=== PATIENT | female | born 1940 | race Caucasian/White ===

== ENCOUNTER 2016-12-23 05:51 | Emergency (ER) | payer MEDICARE ==
--- NOTE | ~2016-12-23 | ER ---
PATIENT'S NAME: EDITH ARRIAGA [facility] AGE: 75 Y [address] ROOM: [place] [address] LOCATION: [facility] ADMIT DATE: 12/23/2016 ER/Outpatient Report DISCHARGE DATE: 12/23/2016 FAMILY PHYSICIAN: Tonya Bauman ATTENDING PHYSICIAN: Benny Pulliam CHIEF COMPLAINT: Diarrhea. HISTORY OF PRESENT ILLNESS: The patient arrives by EMS for evaluation of her diarrhea. The patient was at home this morning around 5 o'clock when she felt the urge to have a bowel movement. She did have loss of stool [facility] This was concerning to her and that is why she pushed her [employer] button. She recently was in [place] and started having diarrhea on Friday on their way back. She was accompanied by a friend at that time. Her friend notes that there are no significant changes about the patient otherwise except for the fact that she has been more forgetful over the last weeks to months. No significant changes in the last 24 hours. The patient denies any other issues and has not seen any blood in her stool that she knows of. PAST MEDICAL HISTORY: Documented on the record and reviewed by me. SOCIAL HISTORY: Documented on the record and reviewed by me. MEDICATIONS: Documented on the record and reviewed by me. ALLERGIES: DOCUMENTED ON THE RECORD REVIEWED BY ME. REVIEW OF SYSTEMS: All systems reviewed and negative except as noted in the HPI. PHYSICAL EXAMINATION: VITAL SIGNS: Blood pressure 169/73, pulse 85, respiratory rate 17, temp 97.6, SpO2 is 100% on room air. Pain 0/10. GENERAL: Age-appropriate female, in no obvious pain or distress. Neuro: The patient is awake and alert. GCS 15. No focal deficits or asymmetry appreciated on her exam. Slight tremor in the hands is noted. No significant asymmetry appreciated. The patient has some word-finding difficulties at time. She does have some recall issues as well. No dysarthria appreciated. No focal deficits. No pronator drift or focal PATIENT'S NAME: EDITH ARRIAGA [facility] AGE: 75 Y [address] ROOM: [place], [place] [address] LOCATION: [facility] ADMIT DATE: 12/23/2016 ER/Outpatient Report DISCHARGE DATE: 12/23/2016 FAMILY PHYSICIAN: Tonya Bauman ATTENDING PHYSICIAN: Benny Pulliam weakness. HEENT: Normocephalic, atraumatic. The eyes are PERRL. The oropharynx is clear, slightly dry lips, otherwise moist, no erythema or exudates. NECK: Supple. Trachea is midline. CHEST: Heart is regular rate and rhythm with no murmurs. LUNGS: Clear to auscultation bilateral with no rhonchi, wheezes, or rales. ABDOMEN: Soft, nontender, and nondistended. No masses, no rebound, no guarding. BACK: Nontender to palpation throughout. No CVA tenderness. RECTAL: Notable for some stool externally. Good strong rectal tone. No gross blood. No masses appreciated. EXTREMITIES: Warm and well perfused with no appreciated peripheral edema. No deformities. SKIN: Intact without rashes or significant breakdown. LABS AND X-RAYS: Head CT without any abnormality per Radiology. Sodium 140, potassium 3.5, chloride 106, CO2 is 26, BUN is 13, creatinine 0.8. GFR greater than 30. LFT is within limits. TSH is 2.06. WBC is 8.6, hemoglobin 12.8, and platelets of 178. INR is 1.0. Hemoccult negative. IMPRESSION: Diarrhea, new onset. EMERGENCY DEPARTMENT COURSE: The patient was evaluated as above. No significant metabolic derangements or hypovolemia appreciated on labs or exam. Head CT was obtained before I obtained prior collateral information with no acute changes in patient's mental status and forgetfulness. No significant findings at that time. I did discuss the patient with Dr. Fernandez, the patient's primary care physician. I am concerned the patient may have progressing dementia, either Alzheimer's or Parkinson type. I do not think that her diarrhea requires intervention at this point in time. She was unable to provide a stool sample. I did send orders for an outpatient stool analysis to be completed. She will return that sample when available. [id number] remedies as needed and encouraged hydration for volume status. Follow up with primary care physician, Dr. Fernandez, anytime this week, except for . This was all discussed with the patient. She expressed her understanding and agreed. Her friend also agreed. All questions were answered. The patient was discharged in good condition. PATIENT'S NAME: EDITH ARRIAGA [facility] AGE: 75 Y [address] ROOM: [place] [address] LOCATION: [facility] ADMIT DATE: 12/23/2016 ER/Outpatient Report DISCHARGE DATE: 12/23/2016 FAMILY PHYSICIAN: Tonya Bauman ATTENDING PHYSICIAN: Benny Pulliam MD JH/[id number] /[id number] d: 12/23/16 1529 t: 12/25/16 0823, OUTPATIENT REPORT
[2016-12-23 06:47] LABS: BASOPHIL % 0.5 %; EOSINOPHIL # 0.3 K/uL (0.0-0.5); HEMATOCRIT 39.3 % (33.0-46.0); HEMOGLOBIN 12.8 g/dL (10.0-15.0); IMMATURE GRANULOCYTE % 0.4 %; LYMPHOCYTE # 1.5 K/uL (0.8-4.0); LYMPHOCYTE % 17.1 %; MCHC 32.6 gm/dL (32.0-36.5); MCV 95.2 fl (83.0-98.0); MONOCYTE # 0.9 K/uL (0.0-1.0); MONOCYTE % 10.7 %; MPV 11.6 fl (9.4-12.4); NEUTROPHIL # (ANC) 5.8 K/uL (1.8-7.8); NEUTROPHIL % 67.3 %; NRBC % 0 /100WBC (0-0.00); PLATELET COUNT 178 K/uL (150-450); RBC 4.13 M/uL (3.50-5.50); RDW-CV 13.4 % (11.9-14.6); WBC 8.6 K/uL (4.0-11.0)
[2016-12-23 06:52] LABS: PROTIME 10.1 SECONDS (9.6-11.1); PTT 24 SECONDS (25-32)
[2016-12-23 07:05] LABS: ALBUMIN 3.5 gm/dL (3.5-5.0); ALK PHOS 55 IU/L (33-138); ALT 25 IU/L (12-78); ANION GAP 11.5 (10.0-19.0); AST 29 IU/L (10-40); BLOOD UREA NITROGEN 13 mg/dL (6-24); CALCIUM 8.8 mg/dL (8.5-10.5); CHLORIDE 106 mMol/L (96-110); CO2 26 mMol/L (22-32); CREATININE 0.8 mg/dL (0.5-1.1); ESTIMATED GFR (MDRD EQUATION) > 60; POTASSIUM 3.5 mMol/L (3.7-5.1); SODIUM 140 mMol/L (135-145); TOTAL BILIRUBIN 0.6 mg/dL (0.0-1.5); TOTAL PROTEIN 7.6 g/dL (6.0-8.4)
[2016-12-23 11:28] LABS: ADENOVIRUS F 40/41 Not Detected (Not Detect); ASTROVIRUS Not Detected (Not Detect); C DIFFICILE TOXIN A/B Not Detected (Not Detect); CAMPYLOBACTER SPECIES Not Detected (Not Detect); CRYPTOSPORIDIUM Not Detected (Not Detect); CYCLOSPORA CAYETANENSIS Not Detected (Not Detect); E. COLI (EPEC) Not Detected (Not Detect); E. COLI (ETEC) Not Detected (Not Detect); E. COLI (STEC) Not Detected (Not Detect); ENTAMOEBA HISTOLYTICA Not Detected (Not Detect); GIARDIA LAMBLIA Not Detected (Not Detect); NOROVIRUS GI/ GII Not Detected (Not Detect); PLESIOMONAS SPECIES Not Detected (Not Detect); ROTAVIRUS A Not Detected (Not Detect); SALMONELLA SPECIES Not Detected (Not Detect); SAPOVIRUS Not Detected (Not Detect); SHIGELLA AND EIEC Not Detected (Not Detect); VIBRIO CHOLERAE Not Detected (Not Detect); VIBRIO SPECIES Not Detected (Not Detect); YERSINIA ENTEROCOLITICA Not Detected (Not Detect)
== END 2016-12-23 08:25 | disposition disaster alternative care site (69) ==
LOC: GMED 05:51
PROVIDERS: Emergency Medicine
DX: R19.7 Diarrhea, unspecified (principal)

== ENCOUNTER → 2016-12-23 | Outpatient (CLI) | payer MEDICARE | END | disposition disaster alternative care site (69) | LOC: GAMB 05:33 | DX: R19.7 Diarrhea, unspecified (principal); R69 Illness, unspecified | CPT/HCPCS: A0425; A0427 ==

== ENCOUNTER → 2017-04-09 | Emergency (ER) | payer MEDICARE | END | disposition disaster alternative care site (69) | LOC: GAMB 10:24 | DX: S89.92XA Unspecified injury of left lower leg, initial encounter (principal); S80.212A Abrasion, left knee, initial encounter; W01.0XXA Fall on same level from slipping, tripping and stumbling without subsequent striking against object, initial encounter ==